=== PATIENT | female | born 1980 | race Caucasian/White ===

== ENCOUNTER 2021-01-03 10:10 | Outpatient (REF) | payer OTHER, SELFPAY ==
[2021-01-03 11:05] LABS: MANUAL DIFF FLAG NO
[2021-01-03 11:16] LABS: Basophils Absolute Auto 0.1 X10*3/uL (0.0-0.2); Basophils Percent Auto 0.8 % (0-2); Eosinophils Absolute Auto 0.2 X10*3/uL (0.0-0.4); Eosinophils Percent Auto 2.8 % (0-4); Hematocrit 39.1 % (37-47); Hemoglobin 13.4 g/dl (12.0-16.0); Imm Gran Abs Auto 0.03 X10*3/uL (0.00-0.03); Imm Gran Pct Auto 0.5 % (0.0-0.4); Lymphocytes Absolute Auto 1.9 X10*3/uL (1.2-4.9); Mean Corpuscular HGB Conc 34.3 g/dl (31.0-35.0); Mean Corpuscular Volume 93.3 fL (80-98); Mean Platelet Volume 10.8 fL (9.4-12.3); Monocytes Absolute Auto 0.5 X10*3/uL (0.1-1.2); Monocytes Percent Auto 7.5 % (2-11); Neutrophils Absolute Auto 3.8 X10*3/uL (2.0-8.3); Neutrophils Percent Auto 59.4 % (45-73); Platelet Count 174 X10*3/uL (160-400); Red Blood Count 4.19 X10*6/uL (4.20-5.50); White Blood Count 6.4 X10*3/uL (4.8-10.8)
[2021-01-03 11:42] LABS: Alanine Aminotransferase 34 U/L (0-31); Albumin Level 4.4 g/dL (3.5-5.0); Alkaline Phosphatase 66 U/L (39-117); Anion Gap 14 (12-20); Aspartate Amino Transferase 18 U/L (5-31); Bilirubin Total 0.6 mg/dL (0.0-1.0); Blood Urea Nitrogen 14 mg/dL (9-16); Carbon Dioxide 20 mmol/L (22-29); Chloride 106 mmol/L (96-108); Cholesterol 213 mg/dL; Estimated Glomerular Filt Rate > 60; Glucose Fasting 98 mg/dL (60-99); HDL Cholesterol 51 mg/dL; LDL Cholesterol Calculated 146 mg/dl; Potassium 4.3 mmol/L (3.3-5.1); Sodium 136 mmol/L (135-145); Triglycerides 80 mg/dL
[2021-01-03 12:04] LABS: Free T4 (Free Thyroxine) 0.83 ng/dL (0.71-1.85); Thyroid Stimulating Hormone 0.61 uIU/mL (0.32-4.0); Vitamin D 25-OH Total 18.3 ng/mL (>30)
[2021-01-03 12:13] LABS: Vitamin B12 452 pg/mL (200-900)
== END 2021-01-03 10:11 | disposition home or self-care (01) ==
LOC: HO.HMGCLDS 10:10
PROVIDERS: PCP Internal Medicine; Visit Provider Internal Medicine
DX: Z00.00 Encounter for general adult medical examination without abnormal findings (principal); R53.83 Other fatigue; E55.9 Vitamin D deficiency, unspecified
CPT/HCPCS: 36415; 80053; 80061; 82306; 82607; 84439; 84443; 85025

== ENCOUNTER 2021-01-07 15:05 | Outpatient (REF) | payer OTHER, SELFPAY ==
--- NOTE | ~2021-01-07 | XR_ITS ---
EXAMINATION: XR CHEST CLINICAL INFORMATION: Cough. Asthma. COMPARISON: Previous chest x-ray December 2018 TECHNIQUE: 2 views of the chest were obtained. FINDINGS: No significant abnormality is noted involving the heart, lungs, mediastinum, bony thorax or soft tissues. XR/XR chest 2V IMPRESSION: Unremarkable examination.
== END 2021-01-07 15:06 | disposition home or self-care (01) ==
LOC: HO.XRAY 15:05
PROVIDERS: PCP Internal Medicine; Visit Provider Internal Medicine
DX: R05 Cough (principal); J45.909 Unspecified asthma, uncomplicated
CPT/HCPCS: 71046

== ENCOUNTER 2022-03-27 16:27 | Outpatient (REF) | payer OTHER, SELFPAY ==
[2022-03-27 16:45] LABS: MANUAL DIFF FLAG NO
[2022-03-27 16:49] LABS: Basophils Percent Auto 0.4 % (0-2); Eosinophils Absolute Auto 0.1 X10*3/uL (0.0-0.4); Eosinophils Percent Auto 1.4 % (0-4); Hematocrit 35.7 % (37.0-47.0); Hemoglobin 12.3 g/dl (12.0-16.0); Imm Gran Abs Auto 0.02 X10*3/uL (0.00-0.03); Imm Gran Pct Auto 0.3 % (0.0-0.4); Lymphocytes Absolute Auto 2.2 X10*3/uL (1.2-4.9); Mean Corpuscular HGB Conc 34.5 g/dl (31.0-35.0); Mean Corpuscular Hemoglobin 32.5 pg (27.0-33.0); Mean Corpuscular Volume 94.2 fL (80.0-98.0); Mean Platelet Volume 11.4 fL (9.4-12.3); Monocytes Absolute Auto 0.5 X10*3/uL (0.1-1.2); Monocytes Percent Auto 6.5 % (2-11); Neutrophils Absolute Auto 4.5 x10*3/uL (2.0-8.3); Neutrophils Percent Auto 61.4 % (45-73); Platelet Count 178 X10*3/uL (160-400); Red Blood Count 3.79 X10*6/uL (4.20-5.50); Red Cell Distribution Width 11.4 % (11.0-16.0); White Blood Count 7.2 X10*3/uL (4.8-10.8)
[2022-03-27 17:03] LABS: D Dimer High Sensitivity < 150 NG/ML
[2022-03-27 17:10] LABS: Anion Gap 10 (12-20); Blood Urea Nitrogen 11 mg/dL (9-16); Calcium 9.2 mg/dL (8.4-10.2); Carbon Dioxide 26 mmol/L (22-29); Chloride 106 mmol/L (96-108); Estimated Glomerular Filt Rate > 60; Glucose Random 94 mg/dL (60-115); Potassium 3.7 mmol/L (3.3-5.1); Sodium 138 mmol/L (135-145)
[2022-03-27 17:14] LABS: Troponin-I High Sensitivity < 3.5 ng/L (<3.5-17.0)
[2022-03-27 17:24] LABS: Erythrocyte Sedimentation Rate 5 MM/HR (0-20)
== END 2022-03-27 16:28 | disposition home or self-care (01) ==
LOC: HO.LAB 16:27
PROVIDERS: PCP Internal Medicine; Visit Provider Internal Medicine
DX: Z13.89 Encounter for screening for other disorder (principal)
CPT/HCPCS: 36415; 80048; 82550; 84484; 85025; 85379; 85652; 86140

== ENCOUNTER 2022-11-29 11:01 | Outpatient (REF) | payer OTHER, SELFPAY ==
[2022-11-29 16:05] LABS: MANUAL DIFF FLAG NO
[2022-11-29 16:48] LABS: Basophils Percent Auto 0.2 % (0-2); Eosinophils Percent Auto 0.8 % (0-4); Hematocrit 36.3 % (37.0-47.0); Hemoglobin 12.3 g/dl (12.0-16.0); Imm Gran Abs Auto 0.01 X10*3/uL (0.00-0.03); Imm Gran Pct Auto 0.2 % (0.0-0.4); Lymphocytes Absolute Auto 1.5 X10*3/uL (1.2-4.9); Lymphocytes Percent Auto 30.7 % (20-40); Mean Corpuscular HGB Conc 33.9 g/dl (31.0-35.0); Mean Corpuscular Hemoglobin 31.7 pg (27.0-33.0); Mean Corpuscular Volume 93.6 fL (80.0-98.0); Mean Platelet Volume 11.8 fL (9.4-12.3); Monocytes Absolute Auto 0.3 X10*3/uL (0.1-1.2); Monocytes Percent Auto 5.6 % (2-11); Neutrophils Absolute Auto 3.1 x10*3/uL (2.0-8.3); Neutrophils Percent Auto 62.5 % (45-73); Platelet Count 170 X10*3/uL (160-400); Red Blood Count 3.88 X10*6/uL (4.20-5.50); Red Cell Distribution Width 11.1 % (11.0-16.0)
[2022-11-29 17:16] LABS: Alanine Aminotransferase 21 U/L (0-31); Albumin Level 4.2 g/dL (3.5-5.0); Alkaline Phosphatase 60 U/L (39-117); Anion Gap 13 (12-20); Aspartate Amino Transferase 17 U/L (5-31); Bilirubin Total 0.5 mg/dL (0.0-1.0); Blood Urea Nitrogen 12 mg/dL (9-16); Carbon Dioxide 21 mmol/L (22-29); Chloride 106 mmol/L (96-108); Cholesterol 202 mg/dL; Estimated Glomerular Filt Rate > 60; Glucose Fasting 99 mg/dL (60-99); HDL Cholesterol 49 mg/dL; LDL Cholesterol Calculated 132 mg/dl; Sodium 136 mmol/L (135-145); Total Protein 6.9 g/dL (6.5-8.0); Triglycerides 108 mg/dL
[2022-11-29 17:22] LABS: Free T4 (Free Thyroxine) 0.88 ng/dL (0.71-1.85); Thyroid Stimulating Hormone 0.77 uIU/mL (0.32-4.0)
== END 2022-11-29 11:02 | disposition home or self-care (01) ==
LOC: HO.HMGCLDS 11:01
PROVIDERS: PCP Internal Medicine; Visit Provider Internal Medicine
DX: R53.83 Other fatigue (principal); R63.5 Abnormal weight gain; I10 Essential (primary) hypertension; E78.00 Pure hypercholesterolemia, unspecified
CPT/HCPCS: 36415; 80053; 80061; 84439; 84443; 85025

== ENCOUNTER 2023-01-18 11:16 | Outpatient (AMB) | payer OTHER, SELFPAY ==
--- NOTE | 2023-01-18 11:18 | MHC.OFFVIS ---
Intake Vital Signs 01/18/23 11:23 Height 5 ft 1 in Weight 177 lb BMI 33.4 BP 147/64 H Blood Pressure Location Rt brachial Position Sitting Pulse 64 Intake Visit Reasons: hemorrhoids, possible hernia Intake Note: This patient presents for an assessment for hemorrhoids. Patient c/o; reports occasional rectal bleeding, denies pain, occasional itching, has never had a colonoscopy. Health Sciences Dean Required: No Accompanied by: Self / Same As Patient Allergies sulfamethoxazole [From Bactrim] Allergy (Verified 01/18/23 11:24) Facial Swelling trimethoprim [From Bactrim] Allergy (Verified 01/18/23 11:24) Facial Swelling Medication List - Last Reconciled 01/18/23 by Pepe Mead MD buspirone 5 mg PO BID metoprolol succinate ER 25 mg PO DAILY HPI hemorrhoids, possible hernia HPI Details 42-year-old female referred for hemorrhoid issues. She says that she has had hemorrhoids since she was 7 years ago. She says the since then, she has noticed this small lump outside her anus. She denies any pain or discomfort or any bleeding. However, she does state that she has some itching around her anus. She denies problems with constipation. FOR[facility]LY [facility] Medical History (Updated 01/18/23 @ 11:47 by Pepe Mead MD) Internal and external hemorrhoids without complication Surgical History (Updated 01/18/23 @ 11:25 by DEMI Erazo) H/O section H/O wrist surgery Hx of tonsillectomy Family History (Updated 01/18/23 @ 11:25 by DEMI Erazo) Mother Non-Hodgkin lymphoma Other Breast cancer Ovarian cancer Social History (Updated 01/18/23 @ 11:26 by DEMI Erazo) Alcohol intake: current Alcohol intake frequency: a few times a week Alcohol type: wine Patient Tobacco Use Status: Never used Tobacco Review of Systems Const Denies chills and Denies fever(s) Card Denies chest pain, Denies dyspnea and Denies dyspnea on exertion Resp Denies cough, Denies dyspnea and Denies dyspnea on exertion GI Denies hematochezia and Denies change in bowel habits Denies hematuria Musc Denies back pain and Denies limited range of motion Neuro Denies focal weakness and Denies convulsions Psych Denies depression and Denies mood swings Physical Exam Vital Signs: Last Vital Signs Pulse 64 01/18/23 11:23 BP 147/64 H 01/18/23 11:23 BMI result Body Mass Index 33.4 Const General: comfortable and no acute distress Orientation/consciousness: patient oriented x3 Neck Neck: Yes no lymphadenopathy Resp Auscultation: clear to auscultation bilaterally Cardio Rhythm: regular rhythm GI Other: Rectal exam shows small external hemorrhoids on the left side, no perianal lesions Palpation (GI): Soft to palpation, nontender and no guarding Neuro General: patient oriented x3 Office Procedures Anoscopy She was in shabbir-knife position. The anoscope was gently inserted. A full examination of the anal canal was done. She did have small hemorrhoidal columns on both the left and right side with a mix of internal external component. There were no other lesions. There was no induration. There was no bleeding. There was no fissure [id number] Assessment & Plan Assessment & Plan (1) Internal and external hemorrhoids without complication: Code(s): K64.4 - Residual hemorrhoidal skin tags; K64.8 - Other hemorrhoids Plan: I explained to her that she has small internal external hemorrhoidal columns. She describes minimal symptoms with itching. I explained to her that I would not recommend proceeding with hemorrhoidectomy at this time. I will prescribe her Calmoseptine for the perianal itching. I have advised her to avoid straining and constipation. She can otherwise see him in the office on a p.r.n. basis. She is comfortable with the plan Coding Level of Care Code New Pt Level 3 (06790) Diagnoses Internal and external hemorrhoids without complication K64.4; K64.8 CPT Codes Details - CPT: 35766-Blfsneos ([id number])
[2023-01-18 11:23] VITALS: BP 147/64; PULSE 64; BMI 33.4
== END 2023-01-18 11:45 | disposition home or self-care (01) ==
PROVIDERS: PCP Internal Medicine; Visit Provider Surgery
DX: K64.4 Residual hemorrhoidal skin tags (principal); K64.8 Other hemorrhoids
CPT/HCPCS: 46600; 99203

== ENCOUNTER → 2023-01-18 11:16 | Outpatient (BNVA) | payer OTHER, SELFPAY | PROVIDERS: PCP Internal Medicine; Visit Provider Surgery | DX: K64.4 Residual hemorrhoidal skin tags (principal); K64.8 Other hemorrhoids | CPT/HCPCS: 46600; 99202 ==

== ENCOUNTER 2023-01-26 11:09 | Outpatient (REF) | payer OTHER, SELFPAY ==
--- NOTE | ~2023-01-26 | MM_ITS ---
EXAMINATION: MM SCREENING DIGITAL BREAST TOMOSYNTHESIS, BILATERAL CLINICAL INFORMATION: Screening. Asymptomatic. COMPARISON: Mammography: This is a baseline study. TECHNIQUE: Digital breast tomosynthesis is performed in both the craniocaudal and mediolateral oblique views along with computer-aided detection (CAD). Synthesized 2D images are generated from the tomosynthesis. FINDINGS: There are scattered areas of fibroglandular density (ACR BI-RADS breast composition Category b). There are no significant masses, abnormal calcifications, or other abnormalities. MM/MM tomosynthesis screening BI IMPRESSION: No mammographic evidence of malignancy. ASSESSMENT: BI-RADS BI-RADS 1 - Negative RECOMMENDATION: Routine annual mammography screening. 1 year F/U This examination should not preclude the clinical evaluation of a suspicious palpable abnormality. This patient's information was entered into a reminder system with a target due date for their next mammogram.
== END 2023-01-26 11:10 | disposition home or self-care (01) ==
LOC: HO.MAMMO 11:09
PROVIDERS: Visit Provider Internal Medicine
DX: Z12.31 Encounter for screening mammogram for malignant neoplasm of breast (principal)
CPT/HCPCS: 77063; 77067

== ENCOUNTER → 2023-01-26 11:15 | Outpatient (BNV) | payer OTHER, SELFPAY | PROVIDERS: Visit Provider Radiology Diagnostic Radiology | DX: Z12.31 Encounter for screening mammogram for malignant neoplasm of breast (principal) | CPT/HCPCS: 77063; 77067 ==

== ENCOUNTER 2023-05-28 10:03 | Outpatient (REF) | payer OTHER, SELFPAY ==
--- NOTE | ~2023-05-28 | XR_ITS ---
EXAMINATION: XR WRIST, LEFT CLINICAL INFORMATION: Left wrist pain COMPARISON: None available. TECHNIQUE: PA, lateral, and oblique views of the left wrist. FINDINGS: Small well-corticated ossific fragment adjacent to the ulnar styloid likely represents an old mildly displaced fracture. No acute fracture. Alignment is anatomic with normal joint spaces. No erosions or abnormal soft tissue calcifications. XR/XR wrist LT min 3V IMPRESSION: 1. No acute abnormality. 2. Old mildly displaced fracture of the ulnar styloid.
== END 2023-05-28 10:04 | disposition home or self-care (01) ==
LOC: HO.HMGCX 10:03
PROVIDERS: PCP Internal Medicine; Visit Provider Internal Medicine
DX: M25.532 Pain in left wrist (principal)
CPT/HCPCS: 73110

== ENCOUNTER 2024-09-30 15:01 | Outpatient (AMB) | payer OTHER, SELFPAY ==
--- OUTSIDE RECORDS SUMMARY | 2024-09-30 15:03 | XMS_ITS | Clinical Summary ---
Author Organization [address] [place] [address] Raissa Address [address] [place] [address] [place] [address] Phone Care Team Providers Care Contract Clerk Automobile Name Role Phone Pepe Grossman MD Primary Care Provider [phone] Surgical History Surgery Date Site/Laterality Comments TONSILLECTOMY PROCEDURE: HISTORICAL TONSILLECTOMY SECTION PROCEDURE: [place] DELIVERY ONLY Medical History Medical History Date Comments Asthma DX:Asthma Hypertension DX:Hypertension Family History Medical History Relation Name Comments No Known Problems Father Cervical cancer Mother needs clarif ication Other: non hod lym Mother Breast cancer Mother's side great aunt Colon cancer Neg Hx Ovarian cancer Neg Hx Relation Name Status Comments Father Alive Half-Brother Alive Half-Sister 1 Alive Half-Sister 2 Alive Mother Alive Mother's side Social History Tobacco Use Types Packs/Day Years Used Date Smoking Tobacco: Former Smokeless Tobacco: Current Alcohol Use Standard Drinks/Week Comments Yes 0 (1 standard drink = 0.6 oz pur e alcohol) Comments Unknown Sex and Gender Information Value Date Recorded Sex Assigned at Not on file Legal Sex Female 6:36 AM EST Gender Identity Not on file Sexual Orientation Not on file Obstetrics History Last Filed Vital Signs Vital Sign Reading Time Taken Comments Blood Pressure 138/87 02/11/2024 8:38 AM EDT Pulse 70 02/11/2024 8:38 AM EDT Temperature - - Respiratory Rate - - Oxygen Saturation - - Inhaled Oxygen Concentration - - Weight 66.8 kg (147 lb 3.2 oz) 02/11/2024 8:38 A M EDT Height 154.9 cm (5' 1 ) 02/11/2024 8:38 AM EDT Body Mass Index 27.81 02/11/2024 8:38 AM EDT Plan of Treatment Health Maintenance Due Date Last Done Comments Breast Cancer Screening 1981 Hepatitis B Vaccines (1 of 3 - 19+ 3-dose series) 2000 Pneumococcal Vaccine: Pediat rics (0 to 5 Years) and At-Risk Patients (6 to 64 Years) (1 of 2 - PCV) 2000 Cholesterol Screening (Lipid Panel) 04/09/2022 Depression Screening 04/09/2022 HIV Screening 04/09/2022 Hepatitis C Screening 04/09/2022 Social Influencers of Health Screening 04/09/2022 Hypertension/CHF/CAD Annual BMP Blood Test 04/20/2022 COVID-19 Vaccine (1 - 2023-2 5 season) 2024 Cervical Cancer Screening: P ap Smear 10/18/2024 10/18/2021 Influenza Vaccine (Season Ended) 2025 DTaP,Tdap,and Td Vaccines (2 - Td or Tdap) 12/04/2026 12/04/2016 HIB Vaccines Aged Out No longer eligi ble based on patient's age to complete this topic HPV Vaccines Aged Out No longer eligi ble based on patient's age to complete this topic Hepatitis A Vaccines Aged Out No long er eligible based on patient's age to complete this topic IPV Vaccines Aged Out No longer eligi ble based on patient's age to complete this topic MMR Vaccines Aged Out No longer eligi ble based on patient's age to complete this topic Meningococcal ACWY Vaccine Aged Out N o longer eligible based on patient's age to complete this topic Meningococcal B Vaccine Aged Out No l onger eligible based on patient's age to complete this topic RSV Immunization Patients Un chaitanya 20 months Aged Out No longer eligible b ased on patient's age to complete this topic Varicella Vaccines Aged Out No longer eligible based on patient's age to complete this topic Procedures Procedure Name Priority Date/Time Associated Diagnosis Comments PAP SMEAR Routine 10/18/2021 from Last 3 Months or Most Recently Relevant to Health Maintenance Results * Pap smear (10/18/2021) 10/18/2021 Narrative HISTORICAL TESTING LAB RESULTING AGENCY - 10/27/2021 7:35 AM EDT [id number] THINPREP PAP, IMAGED: NEGATIVE FOR SQUAMOUS INTRAEPITHELIAL LESION AND MALIGNANCY . SULEMA A. STRUTHERS , CHEPE(ASCP) (CASE ELECTRONICALLY SIGNED 10 26 2021) RESULT OF APTIMA HIGH RISK HPV ASSAY: HIGH RISK HPV: ??NEGATIVE (SEROTYPES 16,18,31,33,35,39,45,51,52,56,58,59,66,68) COMPLETED ON 2021-10-20 ADEQUACY: SATISFACTORY ENDOCERVICAL/TRANSFORMATION ZONE COMPONENT ABSENT. SOURCE: THINPREP PAP HPV ANY DX: ??REFLEX 16 AND 18, CERVICAL, IMAGED CLINICAL INFORMATION: HPV ANY DIAGNOSIS. PAP HX NEGATIVE, [[id number]] us Vinicio Curry DO LAB CYTOLOGY ORDERABLES Final Result HISTORICAL TESTING LAB RESULTING AGENCY from Last 3 Months or Most Recently Relevant to Health Maintenance Care Teams Contract Clerk Automobile Relationship Specialty Start Date End Date Pepe Grossman MD [address] [place] [address] Dr Morales MA PCP - General Internal Medicine 04/21/16
--- NOTE | 2024-09-30 15:05 | MHC.PC.OV ---
Vital Signs 09/30/24 15:08 09/30/24 15:37 Height 5 ft 1 in Weight 66.224 kg BMI 27.6 BP 146/100 H 170/92 H Respiration 16 Pulse 73 Pulse Source Pulse Oximeter Temp 97.9 F Temp Source Temporal Artery Scan Pulse Oximetry (%) 99 Oxygen Delivery Method Room Air Intake Visit Reasons: Heart Palp Program Technician Required: No Accompanied by: Self / Same As Patient Allergies sulfamethoxazole [From Bactrim] Allergy (Verified 09/30/24 15:07) Facial Swelling trimethoprim [From Bactrim] Allergy (Verified 09/30/24 15:07) Facial Swelling HPI HPI Comments History of Present Illness Details 43 year old female with history of htn, anxiety presents to the office to establish care and for evaluation of chest pain. The chest pain has been ongoing for several years but is increasing in frequency. The past 24 hours she has been getting sharp pains in the R side of the chest lasting 1-2 seconds and has been recurring about every minute which is more frequent than previous and can be very intense at times and states can take her breath away. There is occasional lightheadedness but no syncope that is positional in nature. Does not feel this is necessarily correlated. Feels an occasional flutter in the chest. No sob, cough, fevers. She does endorse significant anxiety often but again does not feel like this is correlated. States sometimes she has feelings of impending doom. Reports sometimes the pain improves when she pushes on the area. No exertional or pleuritic. No radiation. FH of cardiac events in maternal GF with CAD, maternal GM CVA, and mother CHF. 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 She is reporting symptoms of perimenopause including anxiety above, night sweats, insomnia. Frequent menses currently. ROS: General: No fevers, malaise, unintentional weight loss Cardiovascular: see hpi Respiratory: see hpi MSK: No myalgia, back pain Neuro: No headaches, weakness, paresthesias Psych: see hpi Skin: No rashes or lesions EXAM: Constitutional - Awake and Alert, No apparent distress Eyes - PERRLA, EOMI Cardiovascular - S1S2, RRR, No edema Chest - nontender to palpation Respiratory - Normal lung expansion, Normal respiratory effort, No respiratory distress, CTA bilaterally Extremities - no calf tenderness bilaterally, no swelling Skin - Warm/Dry Neurological - Alert & oriented x3 Psychological - Appropriate affect PFSH Medical History (Updated 10/01/24 @ 15:46 by EMI Hernandez) Hypertension Internal and external hemorrhoids without complication Surgical History (Updated 01/18/23 @ 11:25 by Emily Day Pia) H/O section H/O wrist surgery Hx of tonsillectomy Family History (Updated 01/18/23 @ 11:25 by DEMI Erazo) Mother Non-Hodgkin lymphoma Other Breast cancer Ovarian cancer Social History (Updated 01/18/23 @ 11:26 by DEMI Erazo) Alcohol intake: current Alcohol intake frequency: a few times a week Alcohol type: wine Patient Tobacco Use Status: Never used Tobacco Questionnaire PHQ-9 Over the last 2 weeks, how often have you been bothered by any of the following problems? 1. Little interest or pleasure in doing things: not at all 2. Feeling down, depressed, or hopeless: nearly every day 3. Trouble falling or staying asleep, or sleeping too much: more than half the days 4. Feeling tired or having little energy: several days 5. Poor appetite or overeating: not at all 6. Feeling bad about yourself - or that you are a failure or have let yourself or your family down: not at all 7. Trouble concentrating on things, such as reading the newspaper or watching television: not at all 8. Moving or speaking so slowly that other people could have noticed. Or the opposite - being so fidgety or restless that you have been moving around a lot more than usual: not at all 9. Thoughts that you would be better off or of hurting yourself in some way: not at all Total score: 6 Source: Developed by Drs. Taz Harry, Unique Martinez, Noe Erickson and colleagues, with an educational jerad from [employer]. Thrive Questionnaire I am a: Patient What is your living situation today?: I have a steady place to live Within the past 12 months, did the food you bought not last and you didn't have the money to get more?: Never true Within the past 12 months, did you worry whether your food would run out before you got money to buy more?: Never true Do you have trouble paying for medicines?: No Do you have trouble getting transportation to medical appointments?: No Do you have trouble paying your heating and electricity bill?: No Do you have trouble taking care of your child, family member or friend?: No Do you have trouble with day-to-day activities such as bathing, preparing meals, shopping, managing finances, etc.?: No Are you currently unemployed and looking for a job?: No Are you interested in more education?: No Please select the resources that you would like help with: None THRIVE Score: 0 LISA-7 AMB Questionnaire LISA-7 Feeling nervous, anxious, or on edge: 3 = Nearly every day Not being able to stop or control worryin = Nearly every day Worrying too much about different things: 2 = More than half the days Trouble relaxin = Not at all Being so restless that it is hard to sit still: 0 = Not at all Becoming easily annoyed or irritable: 1 = Several days Feeling afraid as if something awful might happen: 3 = Nearly every day Total LISA-7 score (0-4 normal; 5-9 mild; 10-14 moderate; 15-21 severe): 12 Source: Developed by Drs. Taz Harry, Unique Martinez, Noe Erickson and colleagues, with an educational jerad from [employer]. Physical exam (Primary Care) Vital Signs: Last Vital Signs Temp 97.9 F 09/30/24 15:08 Pulse 73 09/30/24 15:08 Resp 16 09/30/24 15:08 BP 170/92 H 09/30/24 15:37 Pulse Ox 99 09/30/24 15:08 Oxygen Delivery Method Room Air 09/30/24 15:08 BMI result Body Mass Index 27.6 Tobacco/Smoking Status: Tobacco use Status Patient Tobacco Use Status Never used Tobacco 09/30/24 15:10 PHQ-9: PHQ-9 Score PHQ-9: Total score 6 10/01/24 13:50 Office Procedures EKG Details: NSR, no ischemic changes. Interpreted by this provider [id number], Complete Coding Level of Care Code New Pt Level 4 (73772) Complex EM visit Add On G2211 Diagnoses Atypical chest pain R07.89 Anxiety F41.9 Perimenopausal N95.1 Hypertension I10 CPT Codes EKG - CPT: 25946-[id number], Complete ([id number]) Assessment & Plan Assessment & Plan (1) Atypical chest pain: Code(s): R07.89 - Other chest pain Category: Medical Plan: EKG ordered showing NSR, no ischemic changes. No AV blocks or dysrhythmia. Etiology of pain is unclear. Possibly related to anxiety versus costochondritis vs other. Unlikely to cardiac in etiology. No evidence of pericarditis on EKG. Check inflammatory markers. Check CBC, BMP, TSH, and cxr. Less likely tick borne given duration of symptoms, but does recall tick bite. Tick panel ordered. Unlikely to be infectious given duration of symptoms. Treat anxiety as below. Given associated lightheadedness and palpitations will order 48hr holter monitor. Can also consider POTS if work up negative. (2) Anxiety: Code(s): F41.9 - Anxiety disorder, unspecified Category: Medical Plan: Uncontrolled. LISA-7 score 12. Not interested in SSRI given trial of multiple medications without effect. Increase buspar to 10mg TID. Follow up in 1 month. (3) Perimenopausal: Code(s): N95.1 - Menopausal and female climacteric states Category: Medical Plan: Increased anxiety as well as night sweats and insomnia could be related to perimenopausal state given alteration in menstrual cycle. Check FSH, estradiol, testosterone, progesterone. Recommend trial of black cohosh. (4) Hypertension: Code(s): I10 - Essential (primary) hypertension Category: Medical Plan: Uncontrolled. Increase metoprolol to 50mg ER daily Plan Follow up in 2 weeks. Orders: Orders AMB EKG-In Office 09/30/24 R00.2 - Palpitations Basic Metabolic Panel 09/30/24 F41.9 - Anxiety disorder, unspecified, G47.00 - Insomnia, unspecified, N95.1 - Menopausal and female climacteric states, R07.89 - Other chest pain, W57.XXXA - Bitten or stung by nonvenomous insect and other nonvenomous arthropods, initial encounter TSH reflex Free T4 09/30/24 F41.9 - Anxiety disorder, unspecified, G47.00 - Insomnia, unspecified, N95.1 - Menopausal and female climacteric states, R07.89 - Other chest pain, W57.XXXA - Bitten or stung by nonvenomous insect and other nonvenomous arthropods, initial encounter Tick-borne Disease Molecular 09/30/24 F41.9 - Anxiety disorder, unspecified, G47.00 - Insomnia, unspecified, N95.1 - Menopausal and female climacteric states, R07.89 - Other chest pain, W57.XXXA - Bitten or stung by nonvenomous insect and other nonvenomous arthropods, initial encounter C Reactive Protein 09/30/24 F41.9 - Anxiety disorder, unspecified, G47.00 - Insomnia, unspecified, N95.1 - Menopausal and female climacteric states, R07.89 - Other chest pain, W57.XXXA - Bitten or stung by nonvenomous insect and other nonvenomous arthropods, initial encounter Testosterone, Free/Total 09/30/24 F41.9 - Anxiety disorder, unspecified, G47.00 - Insomnia, unspecified, N95.1 - Menopausal and female climacteric states XR chest 2V 09/30/24 F41.9 - Anxiety disorder, unspecified, G47.00 - Insomnia, unspecified, N95.1 - Menopausal and female climacteric states, R07.89 - Other chest pain, W57.XXXA - Bitten or stung by nonvenomous insect and other nonvenomous arthropods, initial encounter Complete Blood Count Auto Diff 09/30/24 F41.9 - Anxiety disorder, unspecified, G47.00 - Insomnia, unspecified, N95.1 - Menopausal and female climacteric states, R07.89 - Other chest pain, W57.XXXA - Bitten or stung by nonvenomous insect and other nonvenomous arthropods, initial encounter Erythrocyte Sedimentation Rate 09/30/24 F41.9 - Anxiety disorder, unspecified, G47.00 - Insomnia, unspecified, N95.1 - Menopausal and female climacteric states, R07.89 - Other chest pain, W57.XXXA - Bitten or stung by nonvenomous insect and other nonvenomous arthropods, initial encounter ECG holter monitor 48 hour 09/30/24 F41.9 - Anxiety disorder, unspecified, G47.00 - Insomnia, unspecified, N95.1 - Menopausal and female climacteric states, R07.89 - Other chest pain, W57.XXXA - Bitten or stung by nonvenomous insect and other nonvenomous arthropods, initial encounter Estradiol Ultra Sensitive 09/30/24 F41.9 - Anxiety disorder, unspecified, G47.00 - Insomnia, unspecified, N95.1 - Menopausal and female climacteric states Progesterone 09/30/24 F41.9 - Anxiety disorder, unspecified, G47.00 - Insomnia, unspecified, N95.1 - Menopausal and female climacteric states Follicle Stimulating Hormone 09/30/24 F41.9 - Anxiety disorder, unspecified, G47.00 - Insomnia, unspecified, N95.1 - Menopausal and female climacteric states Medications: New metoprolol succinate ER 50 mg PO DAILY 90 tabs 1RF buspirone 10 mg PO TID 90 tabs 0RF
[2024-09-30 15:08] VITALS: BP 146/100; PULSE 73; RESP 16; TEMP 36.6; O2SAT 99; BMI 27.6
[2024-09-30 15:37] VITALS: BP 170/92
== END 2024-09-30 15:45 | disposition home or self-care (01) ==
LOC: HO.HMCHD 15:01
PROVIDERS: PCP Physician Assistant; Visit Provider Physician Assistant
DX: R00.2 Palpitations (principal)

== ENCOUNTER 2024-09-30 15:01 | Outpatient (REF) | payer BC, SELFPAY ==
--- NOTE | ~2024-09-30 | XR_ITS ---
CLINICAL HISTORY: R07.89 - Other chest pain 2 view chest x-ray Comparison: None Findings: Heart size normal. No acute fracture. Impression: No pneumothorax. No consolidation. This document has been electronically signed by: Wali Haley MD on 10/01/2024 17:00:31
[2024-09-30 16:06] LABS: MANUAL DIFF FLAG NO
[2024-09-30 17:13] LABS: Basophils Percent Auto 0.4 % (0-2); Eosinophils Absolute Auto 0.1 X10*3/uL (0.0-0.4); Eosinophils Percent Auto 1.6 % (0-4); Hematocrit 35.6 % (37.0-47.0); Hemoglobin 12.6 g/dl (12.0-16.0); Imm Gran Abs Auto 0.02 X10*3/uL (0.00-0.03); Imm Gran Pct Auto 0.3 % (0.0-0.4); Lymphocytes Absolute Auto 1.6 X10*3/uL (1.2-4.9); Lymphocytes Percent Auto 22.7 % (20-40); Mean Corpuscular HGB Conc 35.4 g/dl (31.0-35.0); Mean Corpuscular Hemoglobin 33.2 pg (27.0-33.0); Mean Corpuscular Volume 93.7 fL (80.0-98.0); Mean Platelet Volume 11.1 fL (9.4-12.3); Monocytes Absolute Auto 0.5 X10*3/uL (0.1-1.2); Monocytes Percent Auto 6.4 % (2-11); Neutrophils Absolute Auto 4.8 x10*3/uL (2.0-8.3); Neutrophils Percent Auto 68.6 % (45-73); Platelet Count 185 X10*3/uL (160-400); Red Cell Distribution Width 11.3 % (11.0-16.0)
[2024-09-30 17:41] LABS: Anion Gap 14 (12-20); Blood Urea Nitrogen 16 mg/dL (9-16); C Reactive Protein < 0.10 mg/dL (< or = 0.50); Calcium 9.5 mg/dL (8.4-10.2); Carbon Dioxide 25 mmol/L (22-29); Chloride 103 mmol/L (96-108); Estimated Glomerular Filt Rate > 60; Glucose Random 88 mg/dL (60-115); Potassium 3.9 mmol/L (3.3-5.1); Sodium 138 mmol/L (135-145)
[2024-09-30 17:58] LABS: TSH reflex Free T4 1.15 uIU/mL (0.32-4.0)
[2024-09-30 19:03] LABS: Erythrocyte Sedimentation Rate 7 MM/HR (0-20)
[2024-10-01 06:03] LABS: Follicle Stimulating Hormone 16.3 mIU/mL
[2024-10-02 20:03] LABS: A. Phagocytphilium DNA,RT-PCR NOT DETECTED (NOT DETECTED); Babesia Microti DNA, RT-PCR NOT DETECTED (NOT DETECTED); Borrelia Miyamotoi,DNA RT-PCR NOT DETECTED (NOT DETECTED); E.Chaffeensis DNA RT-PCR NOT DETECTED (NOT DETECTED); Lyme(Borrelia ssp)DNA RT-PCR NOT DETECTED (NOT DETECTED)
[2024-10-04 14:53] LABS: Testosterone, Free 2.4 pg/mL (0.1-6.4); Testosterone, Total 32 ng/dL (2-45)
[2024-10-09 04:05] LABS: Progesterone 0.7 ng/mL
[2024-10-12 08:08] LABS: Estradiol Ultra Sensitive 145 pg/mL
== END 2024-09-30 15:02 | disposition home or self-care (01) ==
LOC: HO.XRAY 15:01
PROVIDERS: PCP Physician Assistant; Visit Provider Physician Assistant
DX: R07.89 Other chest pain (principal); F41.9 Anxiety disorder, unspecified; N95.1 Menopausal and female climacteric states; I10 Essential (primary) hypertension; G47.00 Insomnia, unspecified
CPT/HCPCS: 36415; 71046; 80048; 82670; 83001; 84144; 84402; 84403; 84443; 85025; 85652; 86140; 87468; 87469; 87478; 87484; 87798; 93005; 99202

== ENCOUNTER → 2024-09-30 16:08 | Outpatient (BNV) | payer BC, SELFPAY | PROVIDERS: PCP Physician Assistant; Visit Provider Radiology Diagnostic Radiology | DX: R07.89 Other chest pain (principal) | CPT/HCPCS: 71046 ==

== ENCOUNTER 2024-10-08 10:44 | Outpatient (AMB) | payer OTHER, SELFPAY ==
[2024-10-08 10:09] VITALS: BP 128/74; PULSE 68; TEMP 36.9; O2SAT 99; BMI 27.2
--- NOTE | 2024-10-08 10:09 | MHC.PC.OV ---
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: No Accompanied by: Self / Same As Patient Allergies sulfamethoxazole [From Bactrim] Allergy (Verified 10/08/24 11:21) Facial Swelling trimethoprim [From Bactrim] Allergy (Verified 10/08/24 11:21) Facial Swelling Medication List - Last Reconciled 10/08/24 by Franko Yung MD albuterol sulfate 90 mcg/actuation inhalation bupropion HCl XL 300 mg PO DAILY buspirone 10 mg PO TID metoprolol succinate ER 50 mg PO DAILY Tobacco use date assessed: 10/08/24 Dental Screening Dental Screen Date: 10/08/24 Did you have a dental visit in the last 12 months?: No Did you have a dental problem in the last 6 months where you did not have access to dental care?: No PFSH Medical History Hyperlipidemia Hypertension Internal and external hemorrhoids without complication Surgical History H/O section H/O wrist surgery Hx of tonsillectomy Family History Mother Non-Hodgkin lymphoma Mother No problems noted. Father No problems noted. Other Breast cancer Ovarian cancer Social History Housing: House Alcohol intake: current Alcohol intake frequency: a few times a week Alcohol type: wine Patient Tobacco Use Status: Former Tobacco user e-Cigarette/Vaping Use: Former Use service: No Current occupational status: employed Cognitive needs: No Hearing needs: No Vision needs: Yes (rx glasses) Questionnaire PHQ-9 Over the last 2 weeks, how often have you been bothered by any of the following problems? 1. Little interest or pleasure in doing things: not at all 2. Feeling down, depressed, or hopeless: not at all 3. Trouble falling or staying asleep, or sleeping too much: not at all 4. Feeling tired or having little energy: not at all 5. Poor appetite or overeating: not at all 6. Feeling bad about yourself - or that you are a failure or have let yourself or your family down: not at all 7. Trouble concentrating on things, such as reading the newspaper or watching television: not at all 8. Moving or speaking so slowly that other people could have noticed. Or the opposite - being so fidgety or restless that you have been moving around a lot more than usual: not at all 9. Thoughts that you would be better off or of hurting yourself in some way: not at all Total score: 0 Source: Developed by Drs. Taz Harry, Unique Martinez, Noe Erickson and colleagues, with an educational jerad from [employer]. Thrive Questionnaire Date Thrive assessed: 10/08/24 I am a: Patient Within the past 12 months, did the food you bought not last and you didn't have the money to get more?: Never true Within the past 12 months, did you worry whether your food would run out before you got money to buy more?: Never true Do you have trouble paying for medicines?: No Do you have trouble getting transportation to medical appointments?: No Do you have trouble paying your heating and electricity bill?: No Do you have trouble taking care of your child, family member or friend?: No Do you have trouble with day-to-day activities such as bathing, preparing meals, shopping, managing finances, etc.?: No Are you currently unemployed and looking for a job?: No Are you interested in more education?: No THRIVE Score: 0 AUDIT C Alcohol Use Questionnaire (AUDIT-C) 1. How often do you have a drink containing alcohol?: Monthly or less 2. How many drinks containing alcohol do you have on a typical day when you are drinking?: 1 or 2 3. How often do you have six or more drinks on one occasion?: Less than monthly Total Score: 2 LISA-7 AMB Questionnaire LISA-7 Date LISA - 7 assessed: 10/08/24 Feeling nervous, anxious, or on edge: 1 = Several days Not being able to stop or control worryin = Not at all Worrying too much about different things: 0 = Not at all Trouble relaxin = Not at all Being so restless that it is hard to sit still: 0 = Not at all Becoming easily annoyed or irritable: 0 = Not at all Feeling afraid as if something awful might happen: 0 = Not at all Total LISA-7 score (0-4 normal; 5-9 mild; 10-14 moderate; 15-21 severe): 1 Source: Developed by Drs. Taz Harry, Unique Martinez, Noe Erickson and colleagues, with an educational jerad from [employer]. Physical exam (Primary Care) Vital Signs: Last Vital Signs Temp 98.4 F 10/08/24 10:09 Pulse 68 10/08/24 10:09 BP 128/74 10/08/24 10:09 Pulse Ox 99 10/08/24 10:09 Oxygen Delivery Method Room Air 10/08/24 10:09 BMI result Body Mass Index 27.2 Tobacco/Smoking Status: Tobacco use Status Tobacco use date assessed 10/08/24 10/08/24 10:11 Patient Tobacco Use Status Former Tobacco user 10/08/24 10:53 e-Cigarette/Vaping Use Former Use 10/08/24 10:53 PHQ-9: PHQ-9 Score PHQ-9: Total score 0 10/08/24 10:53 Thrive Assessment: Date of Thrive Assessment Date Thrive assessed 10/08/24 10/08/24 10:11 Coding Level of Care Code Est Pt Level 4 (47019) Complex EM visit Add On G2211 Diagnoses Hyperlipidemia E78.5 Assessment & Plan Assessment & Plan (1) Hyperlipidemia: Code(s): E78.5 - Hyperlipidemia, unspecified Category: Medical Plan: Blood work ordered. Will call with result Plan History of Present Illness - The patient is a 43-year-old female presenting with a follow-up for ongoing health concerns. She reports persistent chest pain near the heart for years, with recent tests all showing negative results. - Blood work was conducted recently but lacked a cholesterol check. A future fasting blood work test will be scheduled. - The patient has been diagnosed with depression, managed with Wellbutrin, with dosage adjusted recently to mitigate increased anxiety. The adjustment appears to be effective. - Patient experiences anxiety and uses buspirone as part of her treatment regimen. - The patient reports waking frequently during sleep. - Former smoker, now vaping occasionally. 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 - Lives with her and has one child, aged seven. - Former smoker, currently vapes occasionally. - Consumes alcohol. - Actively managing a busy work environment while handling health issues. Review of Systems - Cardiovascular: Reports chest pain in the heart area. - Psychiatric: Reports depression and anxiety. Denies worsening symptoms post medication adjustment. - Sleep: Reports frequent awakenings during sleep. - Respiratory: Denies current cigarette smoking; reports occasional vaping. Physical Exam General: Cooperative and healthy appearing Nutritional Appearance: Well nourished Orientation/consciousness: Patient oriented x3 Limitations: No limitations Head: Normal to inspection General: Appearance normal, both eyes and all related structures Neck: Normal visual inspection Chest: Normal palpation of entire chest wall Respiratory: N ormal respiratory effort Neurology: Patient oriented x3, able to drive and perform all activities of daily living Results - Blood work conducted recently, missing a cholesterol check. Plan 1. Chest Pain - Negative test results. Cholesterol check planned. 2. Depression - Managed with Wellbutrin. Dosage adjusted; patient reports improvement. 3. Anxiety - Managed with buspirone. Dosage adjustments are beneficial. 4. Nicotine Use Disorder - Former smoker now vaping occasionally. 5. Insomnia - Reports frequent sleep disturbances. Discussion Notes I discussed with the patient the recent negative findings related to her chest pain and emphasized the importance of including cholesterol in future blood work. We reviewed her current management of depression and anxiety, noting that the increased dosage of Wellbutrin has been helpful. The patient reports occasional vaping after ceasing cigarette smoking. We also discussed her sleep issues, acknowledging the disruptions caused by frequent awakenings. Follow-up and ongoing management will be necessary to address these conditions, and scheduling for a mammogram and cholesterol testing was initiated. Return for a routine check-up in six months was recommended. Patient Instructions - Schedule and complete a fasting blood work to include a cholesterol check. - Continue taking Wellbutrin and buspirone as prescribed; follow dosing instructions. - If vaping affects your health, consider reducing usage. - Schedule a mammogram as discussed. - Practice sleep hygiene techniques to improve sleep quality. - Follow up in six months for routine evaluation. - Contact the clinic if symptoms worsen or new symptoms arise. Orders: Orders MM screening mammo BI Today Z12.31 - Encounter for screening mammogram for malignant neoplasm of breast Lipid Panel Today E78.5 - Hyperlipidemia, unspecified
--- OUTSIDE RECORDS SUMMARY | 2024-10-08 11:32 | XMS_ITS | Clinical Summary ---
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 Metal Worker Helper Name Role Phone Pepe Grossman MD Primary Care Provider [phone] Surgical History Surgery Date Site/Laterality Comments TONSILLECTOMY PROCEDURE: HISTORICAL TONSILLECTOMY SECTION PROCEDURE: [place] DELIVERY ONLY Medical History Medical History Date [...] RESULTING AGENCY - 10/27/2021 7:35 AM EDT [id number] THINPREP PAP, IMAGED: NEGATIVE FOR SQUAMOUS INTRAEPITHELIAL [...] Recently Relevant to Health Maintenance Care Teams Sheet Metal Worker Helper Relationship Specialty Start Date End Date Pepe Grossman MD [address] [place] [address] Dr Morales MA PCP - General Internal Medicine 04/21/16
== END 2024-10-08 11:19 | disposition home or self-care (01) ==
LOC: HO.HMCHD 10:45
PROVIDERS: PCP Internal Medicine; Visit Provider Internal Medicine
DX: E78.5 Hyperlipidemia, unspecified (principal)

== ENCOUNTER → 2024-10-08 10:44 | Outpatient (BNVA) | payer BC, SELFPAY | PROVIDERS: PCP Internal Medicine; Visit Provider Internal Medicine | DX: E78.5 Hyperlipidemia, unspecified (principal) | CPT/HCPCS: 96127; 99212 ==

== ENCOUNTER 2024-10-22 12:08 | Outpatient (REF) | payer BC, SELFPAY ==
[2024-10-22 13:42] LABS: Cholesterol 191 mg/dL (<200); HDL Cholesterol 57 mg/dL (>40); LDL Cholesterol Calculated 123 mg/dL (<100); Triglycerides 56 mg/dL (<150)
--- OUTSIDE RECORDS SUMMARY | 2024-10-22 14:02 | XMS_ITS | Clinical Summary ---
Author Organization [address] [place], [place] [address]jolly Address [address] [place] [address] [place] [address] Phone Care Team Providers Care Natural Gas Treating Unit Operator Name Role Phone Pepe Grossman MD Primary Care Provider [phone] Surgical History Surgery Date Site/Laterality Comments TONSILLECTOMY PROCEDURE: HISTORICAL TONSILLECTOMY SECTION PROCEDURE: [place] DELIVERY ONLY Medical History Medical History Date [...] RESULTING AGENCY - 10/27/2021 7:35 AM EDT [id number] THINPREP PAP, IMAGED: NEGATIVE FOR SQUAMOUS INTRAEPITHELIAL LESION AND MALIGNANCY . SULEMA A. STRUTHERS , CHEPE(ASCP) (CASE ELECTRONICALLY SIGNED 10 26 2021) RESULT OF APTIMA HIGH RISK HPV ASSAY: HIGH RISK HPV: NEGATIVE (SEROTYPES 16,18,31,33,35,39,45,51,52,56,58,59,66,68) COMPLETED ON 2021-10-20 ADEQUACY: SATISFACTORY ENDOCERVICAL/TRANSFORMATION ZONE COMPONENT ABSENT. SOURCE: THINPREP PAP HPV ANY DX: REFLEX 16 AND 18, CERVICAL, IMAGED CLINICAL INFORMATION: HPV ANY DIAGNOSIS. PAP HX NEGATIVE, [Z01.419] us Vinicio Curry DO LAB CYTOLOGY ORDERABLES Final Result HISTORICAL TESTING LAB RESULTING AGENCY from Last 3 Months or Most Recently Relevant to Health Maintenance Care Teams Natural Gas Treating Unit Operator Relationship Specialty Start Date End Date Pepe Grossman MD [address] [place] [address] Dr Morales MA PCP - General Internal Medicine 04/21/16
== END 2024-10-22 12:09 | disposition home or self-care (01) ==
LOC: HO.HMGCLDS 12:08
PROVIDERS: PCP Internal Medicine; Visit Provider Internal Medicine
DX: E78.5 Hyperlipidemia, unspecified (principal)
CPT/HCPCS: 36415; 80061

== ENCOUNTER 2024-12-31 09:38 | Outpatient (REF) | payer BC, SELFPAY ==
--- OUTSIDE RECORDS SUMMARY | 2024-12-31 10:17 | XMS_ITS | Clinical Summary ---
Author Organization [address] [place] [address] Raissa Address [address] [place] [address] [place] [address] Phone Care Team Providers Care Commercial Lines Sales Executive Name Role Phone Pepe Grossman MD Primary Care Provider [phone] Surgical History Surgery Date Site/Laterality Comments TONSILLECTOMY PROCEDURE: HISTORICAL TONSILLECTOMY SECTION PROCEDURE: [place] DELIVERY ONLY Medical History Medical History Date [...] 5 Years) and At-Risk Patients (6 to 49 Years) (1 of 2 - PCV) 2000 Cholesterol Screening (Lipid Panel) 04/09/2022 HIV Screening 04/09/2022 Hepatitis C Screening 04/09/2022 Social Influencers of Health Screening 04/09/2022 Hypertension/CHF/CAD Annual BMP Blood Test 04/20/2022 COVID-19 Vaccine (1 - 2023-2 5 season) 2024 Depression Screening 05/07/2024 Cervical Cancer Screening: P ap Smear 10/18/2024 10/18/2021 Influenza Vaccine (#1) 2025 DTaP,Tdap,and Td Vaccines (2 - Td [...] RESULTING AGENCY - 10/27/2021 7:35 AM EDT [id number] THINPREP PAP, IMAGED: NEGATIVE FOR SQUAMOUS INTRAEPITHELIAL [...] Recently Relevant to Health Maintenance Care Teams Commercial Lines Sales Executive Relationship Specialty Start Date End Date Pepe Grossman MD [address] [place] [address] Dr Morales MA PCP - General Internal Medicine 04/21/16
== END 2024-12-31 09:39 | disposition home or self-care (01) ==
LOC: HO.MAMMO 09:38
PROVIDERS: PCP Internal Medicine; Visit Provider Internal Medicine
DX: Z12.31 Encounter for screening mammogram for malignant neoplasm of breast (principal)
CPT/HCPCS: 77063; 77067

== ENCOUNTER → 2024-12-31 09:45 | Outpatient (BNV) | payer BC, SELFPAY | PROVIDERS: PCP Internal Medicine; Visit Provider Radiology Body Imaging | DX: Z12.31 Encounter for screening mammogram for malignant neoplasm of breast (principal) | CPT/HCPCS: 77063; 77067 ==